=== PATIENT | female | born 1930 | race Caucasian/White ===

== ENCOUNTER 2020-05-29 12:28 | Day surgery (SDC) | payer MEDICARE, OTHER ==
[2020-05-29] MEDS ORDERED: diphenhydrAMINE 25 MG CAP PO SCH (13:00)
[2020-05-29] MEDS ORDERED: Acetaminophen 325 MG TAB PO SCH (13:00)
[2020-05-29 23:29] LABS: Hemoglobin 9.4 g/dL (12.0-16.0); Platelet Count 179 thou/uL (130-400)
[2020-05-30 08:10] VITALS: BP 151/72; TEMP 98.8
== END 2020-05-30 09:00 | disposition home or self-care (01) ==
LOC: ONC/OP 12:28 → ONC 12:42 → ONC/OP 05-30 09:00
PROVIDERS: ATTEND Family Medicine
PROC: 30233N1 Transfusion of Nonautologous Red Blood Cells into Peripheral Vein, Percutaneous Approach (ICD-10-PCS; principal; 2020-05-29)
DX: D64.9 Anemia, unspecified (principal)
CPT/HCPCS: 36415; 36430; 85014; 85018; 85049; 86850; 86900; 86901; P9016; Q0163

== ENCOUNTER 2020-06-12 15:09 | Day surgery (SDC) | payer MEDICARE, OTHER ==
[2020-06-12] MEDS ORDERED: Acetaminophen 325 MG TAB PO SCH (16:00)
[2020-06-12] MEDS ORDERED: diphenhydrAMINE 25 MG CAP PO SCH (16:00)
== END 2020-06-12 16:23 | disposition home or self-care (01) ==
LOC: ONC/OP 15:09
PROVIDERS: ATTEND Family Medicine
DX: D64.9 Anemia, unspecified (principal); Z53.29 Procedure and treatment not carried out because of patient's decision for other reasons

== ENCOUNTER 2020-06-16 14:50 | Day surgery (SDC) | payer MEDICARE, OTHER ==
[2020-06-16] MEDS ORDERED: diphenhydrAMINE 25 MG CAP PO SCH (15:15)
[2020-06-16] MEDS ORDERED: Acetaminophen 325 MG TAB PO SCH (15:15)
[2020-06-16 16:49] VITALS: TEMP 98.2
[2020-06-16 18:58] VITALS: BP 158/70
[2020-06-16 19:29] LABS: #Monocytes 0.2 thou/uL (0.11-0.59); %Basophils 0.5 % (0.0-1.0); %Eosinophils 0.8 % (0.0-10.0); %Lymphocytes 15.2 % (21.0-51.0); %Monocytes 3.6 % (0.0-10.0); Hemoglobin 8.9 g/dL (12.0-16.0); Mean Corpuscular HGB CONC 32.9 g/dL (32.0-36.0); Mean Corpuscular Hemoglobin 31.7 pg (27.0-31.0); Mean Corpuscular Volume 96.3 fL (78.0-98.0); Mean Platelet Volume 9.1 fL (7.4-10.4); Platelet Count 125 thou/uL (130-400); Red Blood Cell (RBC) Count 2.79 mill/uL (4.20-5.40); White Blood Cell (WBC) Count 6.2 thou/uL (4.8-10.8)
== END 2020-06-16 18:59 | disposition home or self-care (01) ==
LOC: ONC/OP 14:50
PROVIDERS: ATTEND Family Medicine
PROC: 30233N1 Transfusion of Nonautologous Red Blood Cells into Peripheral Vein, Percutaneous Approach (ICD-10-PCS; principal; 2020-06-16)
DX: D64.9 Anemia, unspecified (principal); Z88.0 Allergy status to penicillin; Z88.1 Allergy status to other antibiotic agents
CPT/HCPCS: 36430; 85025; 86850; 86900; 86901; P9016; Q0163